=== PATIENT | female | born 1965 | race Caucasian/White ===

== ENCOUNTER 2017-02-07 08:00 | Day surgery (SDC) | payer BC ==
[~2017-02-07 08:00] MED LIST: AMBIEN CR12.5 MG/BO; AMBIEN5 MG; ARIMIDEX1 MG; LYRICA PO; LYRICA75 MG/CAP PO; TRASTUZUMAB; TYLENOL325 M2 PO; TYLENOL325 MG; ULTRAM50 M1 PO; XANAX0.25 MG
== END 2017-02-07 14:30 ==
LOC: SHSB 08:00 → ORW 09:37 → PACU 11:16 → SHSB 12:05
PROC: 0HX5XZZ Transfer Chest Skin, External Approach (ICD-10-PCS; principal; 2017-02-07)
PROC: 0HPU0JZ Removal of Synthetic Substitute from Left Breast, Open Approach (ICD-10-PCS; 2017-02-07)
DX: L98.7 Excessive and redundant skin and subcutaneous tissue (principal); M79.7 Fibromyalgia; Z85.3 Personal history of malignant neoplasm of breast; Z87.891 Personal history of nicotine dependence; Z90.49 Acquired absence of other specified parts of digestive tract; Z90.13 Acquired absence of bilateral breasts and nipples; Z98.890 Other specified postprocedural states
CPT/HCPCS: C1713; J0690; J2250; J2765; J3010; J3370